=== PATIENT | male | born 1950 | race Caucasian/White ===

== ENCOUNTER 2021-03-11 10:00 | Outpatient (CLI) | payer OTHER, MEDICARE ==
[2021-03-11] MEDS ORDERED: BARIUM SULFATE 135 ML SUSP.RECON (E-Z-HD) PO ONE (10:32)
== END 2021-03-11 21:35 | disposition home or self-care (01) ==
LOC: SRD 10:00
PROVIDERS: ATTEND Otolaryngology
DX: K21.9 Gastro-esophageal reflux disease without esophagitis (principal); R13.10 Dysphagia, unspecified
CPT/HCPCS: 74220-TC